=== PATIENT | male | born 1955 | race Caucasian/White ===

== ENCOUNTER 2016-09-14 12:46 | Emergency (ER) | payer SELFPAY ==
[~2016-09-14 12:46] MED LIST: Heparin 5,000 UNITS/ML VIAL ONE
[2016-09-14] MEDS ORDERED: Ondansetron HCl/PF 4 MG/2 ML Vial ONE (13:08)
[2016-09-14 13:13] LABS: #Eosinphils 0.1 thou/uL (0.0-0.7); #Monocytes 0.4 thou/uL (0.11-0.59); #Neutrophils 7.4 thou/uL (1.40-6.50); %Basophils 0.5 % (0.0-1.0); %Eosinophils 0.6 % (0.0-10.0); %Lymphocytes 11.6 % (21.0-51.0); %Monocytes 4.4 % (0.0-10.0); %Neutrophils 82.9 % (42.0-75.0); Hemoglobin 16.1 g/dL (14.0-18.0); Mean Corpuscular HGB CONC 33.6 g/dL (32.0-36.0); Mean Corpuscular Hemoglobin 27.5 pg (27.0-31.0); Mean Corpuscular Volume 81.9 fl (80.0-94.0); Mean Platelet Volume 12.6 fL (7.4-10.4); Platelet Count 153 thou/uL (130-400); Prothrombin Time 13.2 SEC (12.0-14.7); Red Blood Cell (RBC) Count 5.83 mill/uL (4.70-6.10); White Blood Cell (WBC) Count 8.9 thou/uL (4.8-10.8)
[2016-09-14 13:14] LABS: PTT 22.4 SEC (22.9-36.1)
[2016-09-14 13:23] LABS: ALT (SGPT) 27 U/L (8-55); AST (SGOT) 21 U/L (5-34); Albumin 4.1 g/dL (3.5-5.0); Alkaline Phosphatase 83 U/L (40-150); Anion Gap 14 mmol/L (10-20); BUN (Urea Nitrogen) 22 mg/dL (8.4-25.7); Bilirubin, Total 0.5 mg/dL (0.2-1.2); CK (CPK) 91 U/L (30-200); Calc. Creatinine Clearance 0 mL/min (70-130); Calcium 9.4 mg/dL (7.8-10.44); Carbon Dioxide 23 mmol/L (22-29); Chloride 103 mmol/L (98-107); Estimated GFR-MDRD 67; Globulin 3.3 g/dL (2.4-3.5); Glucose 261 mg/dL (70-105); Potassium 4.6 mmol/L (3.5-5.1); Protein, Total 7.4 g/dL (6.0-8.3); Sodium 135 mmol/L (136-145)
--- NOTE | 2016-09-14 13:25 | CT ---
HEAD CT WITHOUT CONTRAST: Date: 09-14-16 Comparison: None. History: Stroke protocol. Slurred speech, left arm numbness. Technique: Serial axial CT imaging at 5 mm intervals from vertex through the skull base without cont rast. FINDINGS: The imaged paranasal sinuses appear well aerated. The mastoid air cells are hypoplastic and opacifie d bilaterally suggesting chronic change. There is no acute osseous abnormality. There is atheroscler otic calcification of the cavernous carotid arteries. No intracranial hemorrhage, midline shift, mas s effect, or ventricular enlargement. IMPRESSION: No intracranial hemorrhage. If there is clinical concern for acute infarction, brain MRI is advised. POS: [facility]
[2016-09-14 13:28] LABS: Troponin I Less than 0.010 ng/mL (< 0.028)
--- NOTE | 2016-09-14 13:29 | RAD ---
ONE VIEW CHEST: History: CVA. Comparison: None. FINDINGS: Portable upright chest demonstrates atherosclerosis of the aortic knob. Sternotomy wires are identif ied. Normal cardiac silhouette. The pulmonary vessels are within normal limits. Lung volumes are dim inished likely due to poor inspiratory effort. No mass or consolidation. No pleural effusion or pneu mothorax. IMPRESSION: Diminished lung volumes. POS: [facility]
[2016-09-14] MEDS ORDERED: Aspirin 325 MG TAB ONE (13:40)
[2016-09-14] MEDS ORDERED: Heparin 20,000 units/D5W 500 ML ONE (14:05)
[2016-09-14] MEDS ORDERED: Heparin 5,000 UNITS/ML VIAL ONE (14:05)
== END 2016-09-14 14:17 | disposition short-term general hospital (02) ==
LOC: MADERS 12:46
DX: G45.9 Transient cerebral ischemic attack, unspecified (principal); I25.10 Atherosclerotic heart disease of native coronary artery without angina pectoris; I10 Essential (primary) hypertension; E78.4 Other hyperlipidemia; E11.9 Type 2 diabetes mellitus without complications; Z79.4 Long term (current) use of insulin; Z79.2 Long term (current) use of antibiotics; Z79.02 Long term (current) use of antithrombotics/antiplatelets; Z79.899 Other long term (current) drug therapy
CPT/HCPCS: 36416; 70450; 71010; 80053; 82553; 83735; 83880; 84484; 85025; 85610; 85730; 93005; 94760; 96374; 96375; J1644; J2405; J7070

== ENCOUNTER 2016-10-10 23:48 | Emergency (ER) | payer OTHER, SELFPAY ==
[2016-10-11] MEDS ORDERED: Nitroglycerin 0.4 MG TAB 1 EACH ONE (00:21)
== END 2016-10-11 01:05 | disposition home or self-care (01) ==
LOC: MADERS 23:48
DX: I10 Essential (primary) hypertension (principal); E11.9 Type 2 diabetes mellitus without complications; Z86.73 Personal history of transient ischemic attack (TIA), and cerebral infarction without residual deficits; Z79.4 Long term (current) use of insulin; Z79.82 Long term (current) use of aspirin; Z79.899 Other long term (current) drug therapy; Z79.02 Long term (current) use of antithrombotics/antiplatelets
CPT/HCPCS: 99283

== ENCOUNTER 2016-12-01 21:28 | Emergency (ER) | payer OTHER, SELFPAY ==
[2016-12-01] MEDS ORDERED: Gentamicin Ophth Ointment 0.3% 3.5 gm Tube ONE (21:51)
[2016-12-01] MEDS ORDERED: predniSONE 20 MG TAB ONE (21:51)
== END 2016-12-01 22:05 | disposition home or self-care (01) ==
LOC: MADERS 21:28
DX: S00.12XA Contusion of left eyelid and periocular area, initial encounter (principal); H10.9 Unspecified conjunctivitis; E11.9 Type 2 diabetes mellitus without complications; I10 Essential (primary) hypertension; W54.8XXA Other contact with dog, initial encounter
CPT/HCPCS: 99283; J7506

== ENCOUNTER 2018-12-17 19:31 | Emergency (ER) | payer OTHER ==
[~2018-12-17 19:31] MED LIST changes: -Heparin 5,000 UNITS/ML VIAL ONE; +Iopamidol 370 76% 100 ML VIAL ONE
[2018-12-17] MEDS ORDERED: Sodium Chloride 0.9% 1,000 ML ONE ×3 (20:05→23:25)
[2018-12-17] MEDS ORDERED: Ondansetron PF 4 MG/2 ML Vial ONE (20:05)
[2018-12-17 20:37] LABS: ALT (SGPT) 23 U/L (8-55); AST (SGOT) 18 U/L (5-34); Albumin 4.1 g/dL (3.4-4.8); Alkaline Phosphatase 64 U/L (40-110); Anion Gap 13 mmol/L (10-20); BUN (Urea Nitrogen) 21 mg/dL (8.4-25.7); Bilirubin, Total 0.6 mg/dL (0.2-1.2); Calc. Creatinine Clearance 0 mL/min (70-130); Calcium 9.5 mg/dL (7.8-10.44); Carbon Dioxide 29 mmol/L (23-31); Chloride 104 mmol/L (98-107); Estimated GFR-MDRD 54; Globulin 3.3 g/dL (2.4-3.5); Glucose 167 mg/dL (80-115); Magnesium 1.6 mg/dL (1.6-2.6); Potassium 3.4 mmol/L (3.5-5.1); Protein, Total 7.4 g/dL (5.8-8.1); Sodium 143 mmol/L (136-145)
[2018-12-17 21:27] LABS: Band 32 % (5-11); Lymphocytes 5 % (21-51); MDiff Complete? YES; Mean Corpuscular Hemoglobin 26.1 pg (27.0-31.0); Mean Corpuscular Volume 84.3 fL (78.0-98.0); Mean Platelet Volume 10.9 fL (7.4-10.4); Monocytes 1 % (0-10); Neutrophil 62 % (42-75); Platelet Count 202 thou/uL (130-400); RBC Distribution Width 11.9 % (11.5-14.5); RBC Morphology Normal; Red Blood Cell (RBC) Count 5.35 mill/uL (4.70-6.10); White Blood Cell (WBC) Count 23.4 thou/uL (4.8-10.8)
[2018-12-17] MEDS ORDERED: Acetaminophen 500 MG TAB ONE ×2 (21:32→21:38)
[2018-12-17 22:23] LABS: Bilirubin Negative (Negative); Blood, Urine Trace (Negative); Clarity Clear (Clear); Glucose, Urine (Dipstick) >=1000 mg/dL (Negative); Leukocyte Negative (Negative); Nitrite Negative (Negative); Protein, Urine (Dipstick) 30 mg/dL (Neg-Trace)
[2018-12-17 22:31] LABS: Bacteria/HPF None Seen HPF (None Seen); RBC/HPF 0-3 HPF (0-3); Squamous Epithelial 0-3 HPF (0-3); WBC/HPF 0-3 HPF (0-3)
--- NOTE | 2018-12-17 23:07 | CT ---
CT abdomen and pelvis with IV contrast HISTORY: Fever. Leukocytosis. Recent right groin surgery with vascular bypass. FINDINGS: Mild atelectasis at the lung bases. Small amount of hyperdense gravel within the dependent portion of the gallbladder lumen. Calcified granulomata of the spleen. No evidence of bowel obstruction or inflammation. Urinary bladder is unremarkable. Calcification in the arterial structure s. Small cysts of the kidneys. At the hepatic flexure of the colon, a well-circumscribed, somewhat lobular fat density mass is 4.4 cm x 3.2 cm greatest diameters on the coronal images. This has the ap pearance of a lipoma within the wall of the colon. At the right groin, where recent vascular bypass was performed, a small amount of fluid surrounds the arterial anastomosis. Tiny pocket of gas also remains. IMPRESSION: Cholelithiasis. No acute inflammation is apparent. Recent postoperative changes at the right groin. Atherosclerosis. Incidental-type findings as detailed above. Findings were called to Dr. Aleman in the [facility] at 2301 hours. Code CR. Transcribed Date/Time: 12/17/2018 11:13 PM
[2018-12-17] MEDS ORDERED: Piperacillin/Tazobactam 4.5 GM VIAL ONE (23:35)
[2018-12-17] MEDS ORDERED: Sodium Chloride 0.9% 100 ML ONE (23:36)
== END 2018-12-18 00:12 | disposition short-term general hospital (02) ==
LOC: MADERS 19:31
DX: K52.9 Noninfective gastroenteritis and colitis, unspecified (principal); K80.80 Other cholelithiasis without obstruction; E11.9 Type 2 diabetes mellitus without complications; I10 Essential (primary) hypertension; Z95.5 Presence of coronary angioplasty implant and graft; Z86.73 Personal history of transient ischemic attack (TIA), and cerebral infarction without residual deficits; Z79.899 Other long term (current) drug therapy; Z79.82 Long term (current) use of aspirin; Z79.01 Long term (current) use of anticoagulants
CPT/HCPCS: 36415; 74177; 80053; 81003; 81015; 83605; 83735; 85025; 87040; 87077; 87149; 87804; J2405; J2543; J3490; J7050; Q9967

== ENCOUNTER 2019-01-23 10:46 | Outpatient (CLI) | payer OTHER ==
--- NOTE | 2019-01-23 11:31 | ULT ---
EXAM: US Soft Tissue Other PROVIDED CLINICAL HISTORY: Palpable abnormality (knot) subcutaneous soft tissues right lower quadrant. COMPARISON: None FINDINGS: Limited sonographic evaluation of the subcutaneous soft tissues right lower quadrant was performed wh ich is in the region of the patient's palpable abnormality. There is a slightly heterogeneous but predominantly increased echogenicity mass just beneath the skin surface which measures 3 cm x 2 cm x 0.8 cm. No obvious flow is seen within this structure on color flow evaluation. No other additional cystic or solid lesion is identified in the region of the palpable abnormality. IMPRESSION: Heterogeneous but predominantly increased echogenic mass in the subcutaneous soft tissues just below the skin surface in the right lower quadrant which corresponds to patient's area of palpable concern. Although the provided clinical history indicates ecchymosis overlying the region of palpable concern, the primarily echogenic lesion has the appearance suggestive of a lipoma. CT scan is recommended for further evaluation.
== END 2019-01-23 10:47 | disposition home or self-care (01) ==
LOC: MADULT 10:46
PROVIDERS: ATTEND Family Medicine
DX: S30.1XXA Contusion of abdominal wall, initial encounter (principal); R19.03 Right lower quadrant abdominal swelling, mass and lump
CPT/HCPCS: 76999

== ENCOUNTER 2020-09-21 23:25 | Emergency (ER) | payer MEDICARE ==
[~2020-09-21 23:25] MED LIST changes: -Iopamidol 370 76% 100 ML VIAL ONE; +Sodium Chloride 0.9% 1,000 ML BAG ONE
[2020-09-21] MEDS ORDERED: Ondansetron PF 4 MG/2 ML Vial ONE (23:45)
[2020-09-22 00:28] LABS: ALT (SGPT) 13 U/L (8-55); AST (SGOT) 14 U/L (5-34); Albumin 3.7 g/dL (3.4-4.8); Alkaline Phosphatase 68 U/L (40-110); Anion Gap 21 mmol/L (10-20); BUN (Urea Nitrogen) 22 mg/dL (8.4-25.7); CRP (Inflammatory) 19.3 mg/dL (= or < 0.5); Calc. Creatinine Clearance 0 mL/min (70-130); Calcium 9.7 mg/dL (7.8-10.44); Carbon Dioxide 24 mmol/L (23-31); Chloride 93 mmol/L (98-107); Globulin 3.8 g/dL (2.4-3.5); Glucose 315 mg/dL (80-115); Potassium 3.7 mmol/L (3.5-5.1); Protein, Total 7.5 g/dL (5.8-8.1); Sodium 134 mmol/L (136-145)
[2020-09-22 00:30] LABS: Band 4 % (5-11); Hemoglobin 14.3 g/dL (14.0-18.0); Lymphocytes 3 % (21-51); MDiff Complete? YES; Mean Corpuscular HGB CONC 32.6 g/dL (32.0-36.0); Mean Corpuscular Hemoglobin 26.9 pg (27.0-31.0); Mean Corpuscular Volume 82.4 fL (78.0-98.0); Mean Platelet Volume 10.4 fL (7.4-10.4); Monocytes 4 % (0-10); Neutrophil 89 % (42-75); Platelet Count 193 thou/uL (130-400); Platelet Morphology Comment Appears Adequate; RBC Distribution Width 11.6 % (11.5-14.5); RBC Morphology Normal; Red Blood Cell (RBC) Count 5.33 mill/uL (4.70-6.10)
[2020-09-22] MEDS ORDERED: Cefepime 2 GM VIAL ONE (00:32)
[2020-09-22] MEDS ORDERED: Sodium Chloride 0.9% 100 ML ONE (00:32)
[2020-09-22] MEDS ORDERED: metroNIDAZOLE 500 MG/100 ML BAG ONE (00:42)
[2020-09-22 01:04] LABS: SARS-CoV-2 NAA Rapid Test Not Detected (NotDetected)
== END 2020-09-22 01:43 | disposition short-term general hospital (02) ==
LOC: MADERS 23:25
DX: A41.9 Sepsis, unspecified organism (principal); R65.20 Severe sepsis without septic shock; E11.621 Type 2 diabetes mellitus with foot ulcer; E11.65 Type 2 diabetes mellitus with hyperglycemia; E78.5 Hyperlipidemia, unspecified; E78.00 Pure hypercholesterolemia, unspecified; I10 Essential (primary) hypertension; Z86.73 Personal history of transient ischemic attack (TIA), and cerebral infarction without residual deficits; Z79.4 Long term (current) use of insulin; Z79.899 Other long term (current) drug therapy; Z79.82 Long term (current) use of aspirin; Z20.822 Contact with and (suspected) exposure to COVID-19
CPT/HCPCS: 0240U; 71045; 73630; 80053; 82550; 83605; 84484; 85025; 86140; 87040; 87070; 87077; 87186; 87205; 93005; 94760; 96365; 96368; 96375; 99285; J0692; J2405; J3370; J3490; J7050

== ENCOUNTER 2020-09-25 21:17 | Emergency (ER) | payer MEDICARE ==
[2020-09-25] MEDS ORDERED: SODIUM CHLORIDE ONE (21:44)
== END 2020-09-25 23:35 | disposition home or self-care (01) ==
LOC: MADERS 21:17
DX: M96.830 Postprocedural hemorrhage of a musculoskeletal structure following a musculoskeletal system procedure (principal); E78.5 Hyperlipidemia, unspecified; E78.00 Pure hypercholesterolemia, unspecified; E11.9 Type 2 diabetes mellitus without complications; I10 Essential (primary) hypertension; Z86.73 Personal history of transient ischemic attack (TIA), and cerebral infarction without residual deficits; Z79.4 Long term (current) use of insulin; Z79.82 Long term (current) use of aspirin; Z79.899 Other long term (current) drug therapy
CPT/HCPCS: 99283

== ENCOUNTER 2022-09-07 09:08 | Emergency (ER) | payer MEDICARE | END 2022-09-07 10:50 | disposition short-term general hospital (02) | LOC: MADERS 09:08 | DX: I70.211 Atherosclerosis of native arteries of extremities with intermittent claudication, right leg (principal); I25.10 Atherosclerotic heart disease of native coronary artery without angina pectoris; E11.9 Type 2 diabetes mellitus without complications; Z79.4 Long term (current) use of insulin; I10 Essential (primary) hypertension; E78.00 Pure hypercholesterolemia, unspecified; Z79.84 Long term (current) use of oral hypoglycemic drugs; Z79.82 Long term (current) use of aspirin; Z79.899 Other long term (current) drug therapy ==